=== PATIENT | male | born 1985 | race American Indian/Alaskan Native ===

== ENCOUNTER 2021-07-10 23:52 | Emergency (ER) | payer OTHER ==
[2021-07-10 23:57] VITALS: BP 129/86
[2021-07-11] MEDS ORDERED: IBUPROFEN 800 MG TAB PO STA (01:29)
[2021-07-11] MEDS ORDERED: ACETAMINOPHEN 500 MG TAB PO STA (01:29)
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
[2021-07-11] MEDS ORDERED: KETOROLAC 60 MG/2 ML INJ IM ONE (01:57)
--- NOTE | 2021-07-11 02:39 | Cat Scan Report ---
CT head without contrast INDICATION : Possible Syncope from [employer] now with a headache. TECHNIQUE: Axial imaging performed from the skull apex through the skull base without the use of con trast. All CT scans at this location are performed using CT dose reduction for ALARA by means of aut omated exposure control. COMPARISON: None FINDINGS: Parenchyma: No mass, stroke or hemorrhage. Ventricles: Ventricles are normal in size and appear symmetric. Soft tissues: Soft tissues including the orbits appear normal. Bones: No acute osseous abnormality. Sinuses: Sinuses and mastoid air cells are clear. IMPRESSION: No acute abnormality. Signer Name: Zohaib Jensen MD Signed: 07/11/2021 2:35 AM Workstation Name: [id number]
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
== END 2021-07-11 03:29 | disposition home or self-care (01) ==
LOC: ED 23:52
DX: S39.012A Strain of muscle, fascia and tendon of lower back, initial encounter (principal); R55 Syncope and collapse; L40.9 Psoriasis, unspecified; V49.88XA Car occupant (driver) (passenger) injured in other specified transport accidents, initial encounter; Y93.89 Activity, other specified; Y92.89 Other specified places as the place of occurrence of the external cause; Y99.8 Other external cause status
CPT/HCPCS: 70450; 99283